=== PATIENT | female | born 1985 | race African-American/Black ===

== ENCOUNTER 2025-04-06 08:39 | Emergency (ER) | payer OTHER ==
[~2025-04-06] VITALS: Ht 152.4 cm; Wt 83.0 kg
[2025-04-06 10:06] LABS: BASOPHILS % 0.5 % (0.0-1.0); EOSINOPHILS % 1.1 % (0.0-6.0); LYMPHOCYTES % 28.7 % (18.0-39.1); MONOCYTES % 4.8 % (4.4-11.3); NEUTROPHILS % 64.5 % (38.7-80.0); RED CELL DISTRIBUTION WIDTH 13.1 % (11.7-14.4)
[2025-04-06 10:32] LABS: EST GLOMERULAR FILTRATION RATE 83 ML/MIN (>=60)
[2025-04-06] MEDS ORDERED: IOPAMIDOL 370 MG/ML 100 ML INFUS..BTL INJ ONE ×2 (11:35→13:33)
[2025-04-06] MEDS ORDERED: SODIUM CHLORIDE 0.9% 100 ML ONE (11:35)
[2025-04-06 15:18] VITALS: PULSE 77; RESP 15; TEMP 98.8; O2SAT 98
== END 2025-04-06 15:45 | disposition home or self-care (01) ==
LOC: ER 09:02
DX: R07.9 Chest pain, unspecified (principal); R06.02 Shortness of breath; R11.0 Nausea; R47.81 Slurred speech
CPT/HCPCS: 36415; 70450; 71046; 80053; 81025; 82550; 84484; 85025; 93005; 99284; J7050; Q9967